=== PATIENT | female | born 1975 | race Two or more races ===

== ENCOUNTER 2017-10-12 12:03 | Emergency (ER) | payer MEDICAID ==
[~2017-10-12] VITALS: Ht 149.9 cm; Wt 65.0 kg
[2017-10-12 12:11] VITALS: BP 123/104
[2017-10-12] MEDS ORDERED: MELO-100 PO (13:56)
== END 2017-10-12 14:13 | disposition home or self-care (01) ==
LOC: ER 12:05
DX: M25.562 Pain in left knee (principal); Z79.899 Other long term (current) drug therapy; W01.0XXA Fall on same level from slipping, tripping and stumbling without subsequent striking against object, initial encounter; Y93.01 Activity, walking, marching and hiking; Y92.89 Other specified places as the place of occurrence of the external cause; Y99.9 Unspecified external cause status
CPT/HCPCS: 73564; 99284